=== PATIENT | male | born 1995 | race Caucasian/White ===

== ENCOUNTER → 2020-01-28 10:55 | Outpatient (CLI) | payer BC, SELFPAY | PROVIDERS: PCP Family Medicine; Visit Provider Family Medicine | DX: Z20.828 Contact with and (suspected) exposure to other viral communicable diseases (principal) | CPT/HCPCS: 87635; C9803; G2023; U0003 ==

== ENCOUNTER 2020-04-05 16:43 | Emergency (ER) | payer BC, SELFPAY ==
[2020-04-05 16:43] VITALS: BP 127/79; PULSE 83; RESP 18; TEMP 36.3; O2SAT 99; BMI 24.9
--- NOTE | 2020-04-05 17:03 | ED.DCSUM_ITS ---
- ER Visit Summary Date of Service: 04/05/20 Chief Complaint: [Laceration left hand] History of Present Illness: The patient is a 24 M [presents the emergency department with laceration to the left hand that occurred just prior to arrival emergency department. Patient states that he was cutting a zip tie with a pocket knife when he accidentally lacerated his left hand. Patient is right- hand dominant. Patient unsure of his last tetanus.] Physical Examination: [Left hand-patient has a 2.5 cm laceration over the lateral aspect of the second MCP joint. Patient has normal range of motion flexion extension of the digit. There is no evidence of tendon involvement. Neurovascular intact distally.] Test Results: [] Emergency Department Course and Treatment: [Serration repair-wound sterilely draped and prepped. Wound anesthetized locally with 1% lidocaine total of 4 cc. Wound closed with Shur-Clens and irrigated copious saline. The wound was inspected and I do not feel he entered the MCP joint. Using 5-0 nylon a total of 3 single ruptured sutures placed with good wound edge approximation. Patient tired procedure well. Clean dressing applied. Patient received tetanus booster.] Treatment Plan: [Patient to have sutures removed in 10 days. Patient advised to return if increasing pain, redness, swelling, purulent drainage, or condition should worsen anyway.] Disposition: [Discharged home in stable condition] Impression: [Hand laceration 2.5 cm-simple repair] This note was generated with [employer] dictation software. It may contain incorrect words, spelling, and punctuation that were not noted in review of the chart prior to signing ED Disposition - Plan for ED Patient: Referrals: Steve Young MD [Primary Care Provider] -
--- NOTE | 2020-04-05 17:06 | ED.DEP ---
ED Disposition - Plan for ED Patient: Instructions: ED Laceration Hand Referrals: Steve Young MD [Primary Care Provider] - 10 Day for suture removal
[2020-04-05] MEDS: Diphth,Pertuss(Acell),Tet Vac 0.5 ML Vial IM (17:11)
--- NOTE | 2020-04-05 17:43 | ED.RN ---
DISCHARGE INSTRUCTIONS GIVEN TO AND REVIEWED WITH PATIENT, PATIENT DENIES QUESTIONS OR CONCERNS AND VOICES UNDERSTANDING OF DISCHARGE INSTRUCTIONS. PT AMBULATES OUT OF ROOM WITHOUT DIFFICULTY.
== END 2020-04-05 17:44 | disposition home or self-care (01) ==
PROVIDERS: Emergency Provider Emergency Medicine; PCP Family Medicine
DX: S61.412A Laceration without foreign body of left hand, initial encounter (principal); W26.0XXA Contact with knife, initial encounter; Y93.89 Activity, other specified; Y92.9 Unspecified place or not applicable
CPT/HCPCS: 12001; 90471; 90715; 99283

== ENCOUNTER → 2020-06-03 15:46 | Outpatient (CLI) | payer BC, SELFPAY | PROVIDERS: PCP Family Medicine; Visit Provider Family Medicine | DX: Z71.89 Other specified counseling (principal) | CPT/HCPCS: 87635; U0003 ==